=== PATIENT | female | born 1975 | race Two or more races ===

== ENCOUNTER → 2017-01-27 | Outpatient (CLI) | payer OTHER ==
[~2017-01-27] MED LIST: ASPI-496 PO; ASPI-515 PO; CARV12.52 PO; CARV6.252 PO; CEFD300C2 PO; FURO20TA3 PO; HYDR200T PO; LISI5TAB7 PO; LOVA20TA2 PO; MELO-184 PO; MYCO500T3 PO; PANT40TA5 PO; POTA10TA90 PO; PRED10TA PO; PRED5TAB PO; TRAM50TA2 PO
== END | disposition home or self-care (01) ==
LOC: CVU 13:07
PROVIDERS: ATTEND Internal Medicine Cardiovascular Disease
DX: I37.1 Nonrheumatic pulmonary valve insufficiency (principal)
CPT/HCPCS: 93306

== ENCOUNTER → 2017-03-01 | Outpatient (CLI) | payer OTHER ==
[~2017-03-01] MED LIST changes: -CEFD300C2 PO; +CEFD300C37 PO
== END | disposition home or self-care (01) ==
LOC: RAD 16:50
PROVIDERS: ATTEND Internal Medicine Pulmonary Disease
DX: J47.9 Bronchiectasis, uncomplicated (principal)
CPT/HCPCS: 71250

== ENCOUNTER → 2017-03-02 | Outpatient (CLI) | payer OTHER | END | disposition home or self-care (01) | LOC: RAD 15:34 | PROVIDERS: ATTEND Internal Medicine Pulmonary Disease | DX: J47.9 Bronchiectasis, uncomplicated (principal); J84.9 Interstitial pulmonary disease, unspecified; J98.4 Other disorders of lung | CPT/HCPCS: 71250 ==

== ENCOUNTER → 2017-07-10 | Outpatient (CLI) | payer OTHER ==
[~2017-07-10] MED LIST changes: -MELO-184 PO; +MELO15TA24 PO; +POTA10TA6 PO; -POTA10TA90 PO
[2017-07-10 14:48] LABS: ABG COLLECTION SITE LEFT BRACHIAL
== END | disposition home or self-care (01) ==
LOC: CARD 13:06
PROVIDERS: ATTEND Internal Medicine
DX: I27.2 Other secondary pulmonary hypertension (principal)
CPT/HCPCS: 36600; 82803; 94060; 94620; 94726; 94729

== ENCOUNTER → 2017-07-17 | Outpatient (CLI) | payer OTHER | END | disposition home or self-care (01) | LOC: RAD 10:45 | PROVIDERS: ATTEND Internal Medicine | DX: Z01.811 Encounter for preprocedural respiratory examination (principal); J90 Pleural effusion, not elsewhere classified; I27.2 Other secondary pulmonary hypertension | CPT/HCPCS: 71010; 78598; A9540; A9558 ==

== ENCOUNTER → 2017-07-19 | Outpatient (CLI) | payer OTHER ==
[~2017-07-19] MED LIST changes: +OMNIPAQUE 350 MG/ML, 100ML BOTTLE ONE
== END | disposition home or self-care (01) ==
LOC: CFH 08:12
PROVIDERS: ATTEND Internal Medicine
DX: Z13.820 Encounter for screening for osteoporosis (principal); M85.88 Other specified disorders of bone density and structure, other site; I27.2 Other secondary pulmonary hypertension; R91.8 Other nonspecific abnormal finding of lung field; R51 Headache; R59.0 Localized enlarged lymph nodes; J47.9 Bronchiectasis, uncomplicated; J84.112 Idiopathic pulmonary fibrosis; N20.0 Calculus of kidney
CPT/HCPCS: 70450; 71020; 71260; 74177; 77080; Q9967

== ENCOUNTER 2017-09-23 23:06 | Inpatient (IN) | payer OTHER ==
[~2017-09-23] VITALS: Ht 160 cm; Wt 50.2 kg
[~2017-09-23 23:06] MED LIST changes: -OMNIPAQUE 350 MG/ML, 100ML BOTTLE ONE
[2017-09-23] MEDS ORDERED: morphine SULFATE 10 MG/ML, 1ML IVPush PRN (23:30)
[2017-09-23] MEDS ORDERED: ONDANSETRON 2MG/ML, 2ML IVPush ONE (23:30)
[2017-09-23] MEDS ORDERED: SODIUM CHLORIDE FLUSH 10ML SYR IVF ONE (23:30)
[2017-09-23] MEDS ORDERED: ACETAMINOPHEN 325 MG TABLET PO ONE (23:30)
[2017-09-23] MEDS ORDERED: SODIUM CHLORIDE 0.9% 1,000ML IVBOLUS ONE (23:30)
[2017-09-23] MEDS ORDERED: ACETAMINOPHEN 325 MG TABLET ONE (23:50)
[2017-09-23] MEDS ORDERED: morphine SULFATE 10 MG/ML, 1ML ONE (23:51)
[2017-09-23] MEDS ORDERED: ONDANSETRON 2MG/ML, 2ML ONE (23:51)
[2017-09-23 23:54] LABS: RAPID INFLUENZA A Negative (Negative); RAPID INFLUENZA B Negative (Negative)
[2017-09-24 00:16] LABS: HEMATOCRIT 43.2 % (34.6-47.8); HEMOGLOBIN 14.2 g/dL (11.7-16.4); WHITE BLOOD COUNT 13.6 x10^3/uL (3.4-10)
[2017-09-24] MEDS ORDERED: NINT150C PO (00:16)
[2017-09-24] MEDS ORDERED: MELO15TA24 PO (00:16)
[2017-09-24] MEDS ORDERED: FLUT9.9S INH (00:16)
[2017-09-24] MEDS ORDERED: SODIUM CHLORIDE 0.9% 1,000 ML IV SCH (00:20)
[2017-09-24 00:23] LABS: ASPARTATE AMINO TRANSFERASE 19 U/L (15-37); BLOOD UREA NITROGEN 13 mg/dL (7-18)
[2017-09-24 00:30] LABS: IS PT STATUS REG ER OR PRE ER? YES
[2017-09-24] MEDS ORDERED: morphine SULFATE 10 MG/ML, 1ML IVPush PRN (00:30)
[2017-09-24] MEDS ORDERED: GUAIFENESIN/DM 200-20MG, 10ML UDC PO PRN (00:30)
[2017-09-24] MEDS ORDERED: TEMAZEPAM 15 MG CAPSULE PO PRN (00:30)
[2017-09-24] MEDS ORDERED: DOCUSATE 100 MG CAPSULE PO PRN (00:30)
[2017-09-24 01:18] VITALS: BP 120/80
[2017-09-24] MEDS: CEFTRIAXONE PMX 1GM/50ML 50 ML IV SCH ×2 (02:05→13:21)
[2017-09-24] MEDS: ENOXAPARIN 40 MG/0.4 ML SQ SCH (02:05)
[2017-09-24] MEDS: methylPREDNISolone SOD SUCC 40 MG/ML IV SCH ×3 (02:05→16:24)
[2017-09-24] MEDS ORDERED: ALBUTEROL SULFATE 2.5 MG/3 ML NPPB PRN (02:30)
[2017-09-24] MEDS: AZITHROMYCIN 500 MG in SODIUM CHLORIDE 0.9% 250 ML IV SCH (02:47)
[2017-09-24 06:40] VITALS: BP 91/60
[2017-09-24] MEDS: [UNRECOGNIZED DRUG - OTHER] HOMEMEDPO SCH (09:00)
[2017-09-24] MEDS: LISINOPRIL 5 MG TABLET PO SCH (09:00)
[2017-09-24] MEDS: CARVEDILOL 12.5 MG TABLET PO SCH ×2 (09:00→21:06)
[2017-09-24] MEDS: ASPIRIN 81 MG TABLET EC PO SCH (09:00)
[2017-09-24] MEDS: HYDROXYCHLOROQUINE 200 MG TABLET PO SCH ×2 (09:19→21:06)
[2017-09-24] MEDS ORDERED: FUROSEMIDE 40 MG/4 ML IV ONE (11:00)
[2017-09-24 12:36] VITALS: BP 107/72
[2017-09-24 14:36] VITALS: BP 131/91
[2017-09-24] MEDS: ONDANSETRON 2MG/ML, 2ML IVPush PRN (15:27)
[2017-09-24] MEDS: ACETAMINOPHEN 325 MG TABLET PO PRN ×2 (16:33→21:06)
[2017-09-24] MEDS ORDERED: PROMETHAZINE 25 MG/ML, 1ML IM PRN (18:00)
[2017-09-24 20:30] VITALS: BP 131/84
[2017-09-25] MEDS: methylPREDNISolone SOD SUCC 40 MG/ML IV SCH ×3 (01:16→17:07)
[2017-09-25] MEDS: ENOXAPARIN 40 MG/0.4 ML SQ SCH (01:18)
[2017-09-25] MEDS: CEFTRIAXONE PMX 1GM/50ML 50 ML IV SCH ×2 (01:34→13:19)
[2017-09-25] MEDS: AZITHROMYCIN 500 MG in SODIUM CHLORIDE 0.9% 250 ML IV SCH (02:04)
[2017-09-25 02:05] VITALS: BP 91/60
[2017-09-25 05:32] LABS: HEMATOCRIT 35.7 % (34.6-47.8); HEMOGLOBIN 11.6 g/dL (11.7-16.4); WHITE BLOOD COUNT 6.5 x10^3/uL (3.4-10)
[2017-09-25 05:34] LABS: BLOOD UREA NITROGEN 20 mg/dL (7-18)
[2017-09-25 08:00] VITALS: BP 99/66
[2017-09-25] MEDS: ASPIRIN 81 MG TABLET EC PO SCH (08:29)
[2017-09-25] MEDS: LISINOPRIL 5 MG TABLET PO SCH (08:29)
[2017-09-25] MEDS: CARVEDILOL 12.5 MG TABLET PO SCH ×2 (08:29→20:12)
[2017-09-25] MEDS: [UNRECOGNIZED DRUG - OTHER] HOMEMEDPO SCH (08:30)
[2017-09-25] MEDS: HYDROXYCHLOROQUINE 200 MG TABLET PO SCH ×2 (08:30→20:12)
[2017-09-25] MEDS: ONDANSETRON 2MG/ML, 2ML IVPush PRN ×2 (13:19→20:19)
[2017-09-25 13:58] VITALS: BP 121/82
[2017-09-25 20:37] VITALS: BP 144/96
[2017-09-26] MEDS: CEFTRIAXONE PMX 1GM/50ML 50 ML IV SCH ×2 (01:01→12:37)
[2017-09-26] MEDS: ENOXAPARIN 40 MG/0.4 ML SQ SCH (01:01)
[2017-09-26] MEDS: methylPREDNISolone SOD SUCC 40 MG/ML IV SCH ×3 (01:01→17:15)
[2017-09-26 01:29] VITALS: BP 136/90
[2017-09-26] MEDS: AZITHROMYCIN 500 MG in SODIUM CHLORIDE 0.9% 250 ML IV SCH (02:17)
[2017-09-26] MEDS: ONDANSETRON 2MG/ML, 2ML IVPush PRN ×2 (02:36→08:58)
[2017-09-26 05:15] LABS: HEMOGLOBIN 12.2 g/dL (11.7-16.4); WHITE BLOOD COUNT 7.2 x10^3/uL (3.4-10)
[2017-09-26 05:24] LABS: BLOOD UREA NITROGEN 24 mg/dL (7-18)
[2017-09-26 07:40] VITALS: BP 141/90
[2017-09-26 07:50] LABS: ABG COLLECTION SITE RIGHT RADIAL; COLLATERAL CIRCULATION TESTING NORMAL
[2017-09-26] MEDS: LISINOPRIL 5 MG TABLET PO SCH (08:38)
[2017-09-26] MEDS: CARVEDILOL 12.5 MG TABLET PO SCH ×2 (08:38→20:42)
[2017-09-26] MEDS: HYDROXYCHLOROQUINE 200 MG TABLET PO SCH ×2 (08:38→20:42)
[2017-09-26] MEDS: [UNRECOGNIZED DRUG - OTHER] HOMEMEDPO SCH (08:39)
[2017-09-26] MEDS: ASPIRIN 81 MG TABLET EC PO SCH (08:41)
[2017-09-26] MEDS: ALBUTEROL SULFATE 2.5 MG/3 ML NPPB SCH ×4 (09:47→19:31)
[2017-09-26] MEDS: SODIUM CHLORIDE 0.9% 1,000 ML IV SCH ×2 (11:22→23:32)
[2017-09-26 12:34] LABS: BLOOD UREA NITROGEN 23 mg/dL (7-18)
[2017-09-26] MEDS: ACETAMINOPHEN 325 MG TABLET PO PRN (17:46)
[2017-09-27] MEDS: methylPREDNISolone SOD SUCC 40 MG/ML IV SCH ×3 (00:34→17:14)
[2017-09-27] MEDS: ENOXAPARIN 40 MG/0.4 ML SQ SCH (00:35)
[2017-09-27] MEDS: CEFTRIAXONE PMX 1GM/50ML 50 ML IV SCH ×2 (01:38→13:48)
[2017-09-27] MEDS: AZITHROMYCIN 500 MG in SODIUM CHLORIDE 0.9% 250 ML IV SCH (02:04)
[2017-09-27 04:31] LABS: ABG COLLECTION SITE RIGHT RADIAL; COLLATERAL CIRCULATION TESTING NORMAL
[2017-09-27 04:36] LABS: HEMATOCRIT 34.7 % (34.6-47.8); HEMOGLOBIN 11.3 g/dL (11.7-16.4); WHITE BLOOD COUNT 4.9 x10^3/uL (3.4-10)
[2017-09-27 04:41] LABS: BLOOD UREA NITROGEN 16 mg/dL (7-18)
[2017-09-27 06:10] VITALS: BP 130/88
[2017-09-27] MEDS: ALBUTEROL SULFATE 2.5 MG/3 ML NPPB SCH ×4 (07:00→19:49)
[2017-09-27] MEDS: CARVEDILOL 12.5 MG TABLET PO SCH ×2 (08:18→21:42)
[2017-09-27] MEDS: HYDROXYCHLOROQUINE 200 MG TABLET PO SCH ×2 (08:19→21:42)
[2017-09-27] MEDS: LISINOPRIL 5 MG TABLET PO SCH (08:19)
[2017-09-27] MEDS: ASPIRIN 81 MG TABLET EC PO SCH ×2 (08:19→08:24)
[2017-09-27] MEDS: [UNRECOGNIZED DRUG - OTHER] HOMEMEDPO SCH (08:23)
[2017-09-27] MEDS: SODIUM CHLORIDE 0.9% 1,000 ML IV SCH (13:48)
[2017-09-27] MEDS: ACETAMINOPHEN 325 MG TABLET PO PRN (19:36)
[2017-09-28] VITALS (7 sets, daily range): BP systolic 140–178; BP diastolic 88–110
[2017-09-28] MEDS: methylPREDNISolone SOD SUCC 40 MG/ML IV SCH ×3 (00:12→18:10)
[2017-09-28] MEDS: ENOXAPARIN 40 MG/0.4 ML SQ SCH (00:12)
[2017-09-28] MEDS: CEFTRIAXONE PMX 1GM/50ML 50 ML IV SCH ×2 (01:02→15:53)
[2017-09-28] MEDS: SODIUM CHLORIDE 0.9% 1,000 ML IV SCH ×2 (02:11→20:24)
[2017-09-28] MEDS: AZITHROMYCIN 500 MG in SODIUM CHLORIDE 0.9% 250 ML IV SCH (02:11)
[2017-09-28] MEDS: ONDANSETRON 2MG/ML, 2ML IVPush PRN (03:17)
[2017-09-28 04:36] LABS: ABG COLLECTION SITE RIGHT RADIAL; COLLATERAL CIRCULATION TESTING NORMAL
[2017-09-28 04:49] LABS: BLOOD UREA NITROGEN 13 mg/dL (7-18)
[2017-09-28] MEDS ORDERED: ALBUTEROL SULFATE 2.5 MG/3 ML NPPB PRN (07:00)
[2017-09-28] MEDS ORDERED: AcetaZOLAMIDE INJ 500 MG IVPush SCH (08:30)
[2017-09-28] MEDS: LISINOPRIL 5 MG TABLET PO SCH (08:41)
[2017-09-28] MEDS: ASPIRIN 81 MG TABLET EC PO SCH (08:41)
[2017-09-28] MEDS: HYDROXYCHLOROQUINE 200 MG TABLET PO SCH ×2 (08:42→20:25)
[2017-09-28] MEDS: [UNRECOGNIZED DRUG - OTHER] HOMEMEDPO SCH (08:42)
[2017-09-28] MEDS: CARVEDILOL 12.5 MG TABLET PO SCH ×2 (08:42→20:25)
[2017-09-28] MEDS: ENALAPRILAT 1.25 MG/ML, 2ML IVPush PRN ×2 (12:06→23:21)
[2017-09-29] VITALS (10 sets, daily range): BP systolic 117–185; BP diastolic 64–111
[2017-09-29] MEDS: ENOXAPARIN 40 MG/0.4 ML SQ SCH (01:47)
[2017-09-29] MEDS: methylPREDNISolone SOD SUCC 40 MG/ML IV SCH ×3 (01:47→16:59)
[2017-09-29] MEDS: AZITHROMYCIN 500 MG in SODIUM CHLORIDE 0.9% 250 ML IV SCH (01:47)
[2017-09-29] MEDS: CEFTRIAXONE PMX 1GM/50ML 50 ML IV SCH ×2 (03:25→16:54)
[2017-09-29 06:00] LABS: BLOOD UREA NITROGEN 11 mg/dL (7-18)
[2017-09-29] MEDS: ENALAPRILAT 1.25 MG/ML, 2ML IVPush PRN ×2 (08:27→10:12)
[2017-09-29] MEDS: [UNRECOGNIZED DRUG - OTHER] HOMEMEDPO SCH (08:30)
[2017-09-29] MEDS: ASPIRIN 81 MG TABLET EC PO SCH (08:30)
[2017-09-29] MEDS: HYDROXYCHLOROQUINE 200 MG TABLET PO SCH ×2 (08:30→20:29)
[2017-09-29] MEDS: CARVEDILOL 12.5 MG TABLET PO SCH ×2 (08:31→20:29)
[2017-09-29] MEDS: LISINOPRIL 5 MG TABLET PO SCH (08:31)
[2017-09-29] MEDS: SODIUM CHLORIDE 0.9% 1,000 ML IV SCH (12:10)
[2017-09-29] MEDS ORDERED: AcetaZOLAMIDE INJ 500 MG IVPush ONE (16:30)
[2017-09-29] MEDS: LISINOPRIL 10 MG TABLET PO SCH (16:54)
[2017-09-29] MEDS: AMLODIPINE 5 MG TABLET PO SCH (16:54)
[2017-09-30] VITALS (7 sets, daily range): BP systolic 145–165; BP diastolic 91–106
[2017-09-30] MEDS: ENOXAPARIN 40 MG/0.4 ML SQ SCH (00:13)
[2017-09-30] MEDS: methylPREDNISolone SOD SUCC 40 MG/ML IV SCH ×3 (00:13→16:25)
[2017-09-30] MEDS: AZITHROMYCIN 500 MG in SODIUM CHLORIDE 0.9% 250 ML IV SCH (02:04)
[2017-09-30] MEDS: CEFTRIAXONE PMX 1GM/50ML 50 ML IV SCH ×2 (03:17→14:59)
[2017-09-30 06:19] LABS: BLOOD UREA NITROGEN 10 mg/dL (7-18)
[2017-09-30] MEDS: [UNRECOGNIZED DRUG - OTHER] HOMEMEDPO SCH (09:24)
[2017-09-30] MEDS: AMLODIPINE 5 MG TABLET PO SCH (09:25)
[2017-09-30] MEDS: ASPIRIN 81 MG TABLET EC PO SCH (09:25)
[2017-09-30] MEDS: LISINOPRIL 10 MG TABLET PO SCH (09:25)
[2017-09-30] MEDS: HYDROXYCHLOROQUINE 200 MG TABLET PO SCH ×2 (09:25→21:41)
[2017-09-30] MEDS: CARVEDILOL 12.5 MG TABLET PO SCH ×2 (09:26→21:41)
[2017-09-30] MEDS ORDERED: AcetaZOLAMIDE INJ 500 MG IVPush ONE (12:00)
[2017-09-30] MEDS: NYSTATIN 500,000 UNITS/5 ML UDC PO SCH (21:40)
[2017-10-01] MEDS: methylPREDNISolone SOD SUCC 40 MG/ML IV SCH ×3 (00:26→16:18)
[2017-10-01] MEDS: ENOXAPARIN 40 MG/0.4 ML SQ SCH (00:26)
[2017-10-01] MEDS: AZITHROMYCIN 500 MG in SODIUM CHLORIDE 0.9% 250 ML IV SCH (02:01)
[2017-10-01 02:07] VITALS: BP 128/88
[2017-10-01] MEDS: CEFTRIAXONE PMX 1GM/50ML 50 ML IV SCH ×2 (03:43→16:18)
[2017-10-01 05:19] LABS: BLOOD UREA NITROGEN 11 mg/dL (7-18)
[2017-10-01] MEDS: NYSTATIN 500,000 UNITS/5 ML UDC PO SCH ×4 (06:15→19:56)
[2017-10-01 06:50] VITALS: BP 158/89
[2017-10-01] MEDS: [UNRECOGNIZED DRUG - OTHER] HOMEMEDPO SCH (09:00)
[2017-10-01] MEDS: ASPIRIN 81 MG TABLET EC PO SCH (09:00)
[2017-10-01] MEDS: LISINOPRIL 10 MG TABLET PO SCH (09:49)
[2017-10-01] MEDS: AMLODIPINE 5 MG TABLET PO SCH (09:49)
[2017-10-01] MEDS: HYDROXYCHLOROQUINE 200 MG TABLET PO SCH ×2 (09:49→19:56)
[2017-10-01] MEDS: CARVEDILOL 12.5 MG TABLET PO SCH ×2 (09:49→19:56)
[2017-10-01 14:36] VITALS: BP 130/80
[2017-10-01 19:23] VITALS: BP 166/101
[2017-10-02] MEDS: ENOXAPARIN 40 MG/0.4 ML SQ SCH (00:53)
[2017-10-02] MEDS: methylPREDNISolone SOD SUCC 40 MG/ML IV SCH ×2 (00:53→09:02)
[2017-10-02] MEDS: AZITHROMYCIN 500 MG in SODIUM CHLORIDE 0.9% 250 ML IV SCH (02:32)
[2017-10-02 02:57] VITALS: BP 158/96
[2017-10-02] MEDS: CEFTRIAXONE PMX 1GM/50ML 50 ML IV SCH ×2 (03:56→15:30)
[2017-10-02] MEDS: NYSTATIN 500,000 UNITS/5 ML UDC PO SCH ×2 (05:58→11:00)
[2017-10-02 08:11] VITALS: BP 166/99
[2017-10-02] MEDS: ASPIRIN 81 MG TABLET EC PO SCH (09:00)
[2017-10-02] MEDS: [UNRECOGNIZED DRUG - OTHER] HOMEMEDPO SCH (09:00)
[2017-10-02] MEDS: HYDROXYCHLOROQUINE 200 MG TABLET PO SCH (09:02)
[2017-10-02] MEDS: LISINOPRIL 10 MG TABLET PO SCH (09:03)
[2017-10-02] MEDS: AMLODIPINE 5 MG TABLET PO SCH (09:03)
[2017-10-02] MEDS: CARVEDILOL 12.5 MG TABLET PO SCH (09:03)
[2017-10-02 14:00] VITALS: BP 162/96
[2017-10-02] MEDS ORDERED: NYST1000 PO (14:33)
[2017-10-02] MEDS ORDERED: AMLO5TAB2 PO (14:33)
[2017-10-02] MEDS ORDERED: LISI-170 PO (14:33)
[2017-10-02] MEDS ORDERED: PRED5TAB PO (14:33)
[2017-10-02] MEDS ORDERED: DOCU-131 PO (14:33)
[2017-10-02] MEDS ORDERED: AZIT500T PO (14:41)
[2017-10-02] MEDS ORDERED: CEFD300C37 PO (14:41)
[2017-10-02] MEDS ORDERED: FURO-93 PO (14:45)
[2017-10-03] MEDS ORDERED: LISINOPRIL 20 MG TABLET PO SCH (09:00)
== END 2017-10-02 16:39 | disposition home or self-care (01) | DRG 871 ==
LOC: ED 23:59 → EDIP 09-24 01:18 → 4WST 09-24 01:19 → CCU 09-26 09:24 → 3NE 09-28 13:34 → DCLOUNGE 10-02 16:20
PROVIDERS: ADMIT Family Medicine; ATTEND Family Medicine
DX: A41.9 Sepsis, unspecified organism (principal); E43 Unspecified severe protein-calorie malnutrition; J96.21 Acute and chronic respiratory failure with hypoxia; D84.9 Immunodeficiency, unspecified; K52.1 Toxic gastroenteritis and colitis; B37.0 Candidal stomatitis; J15.9 Unspecified bacterial pneumonia; J96.22 Acute and chronic respiratory failure with hypercapnia; I50.30 Unspecified diastolic (congestive) heart failure; Z68.1 Body mass index [BMI] 19.9 or less, adult; J47.0 Bronchiectasis with acute lower respiratory infection; I11.0 Hypertensive heart disease with heart failure; I27.20 Pulmonary hypertension, unspecified; E78.5 Hyperlipidemia, unspecified; I07.1 Rheumatic tricuspid insufficiency; I25.10 Atherosclerotic heart disease of native coronary artery without angina pectoris; J00 Acute nasopharyngitis [common cold]; J84.10 Pulmonary fibrosis, unspecified; M06.9 Rheumatoid arthritis, unspecified; Z99.81 Dependence on supplemental oxygen
CPT/HCPCS: 36415; 36600; 71010; 80048; 80053; 82803; 83605; 83735; 83880; 84145; 84484; 85025; 87040; 87081; 87400; 88108; 88112; 93005; 93306; 94640; 96361; 96374; 96375; J0456; J0696; J1650; J1940; J2405; J7613; J1120; J2270; J2920; J7030; J7050; J7517

== ENCOUNTER 2017-10-30 12:01 | Day surgery (SDC) | payer OTHER ==
[2017-10-27 11:23] VITALS: BP 107/72
[2017-10-27 11:56] LABS: BASOPHILS # (AUTO) 0.02 x10^3/uL (0-0.1); BASOPHILS % (AUTO) 0 % (0-1); EOSINOPHILS # (AUTO) 0.11 x10^3/uL (0-0.4); EOSINOPHILS % (AUTO) 3 % (1-7); LYMPHOCYTES # (AUTO) 1.22 x10^3/uL (1-3.4); LYMPHOCYTES % (AUTO) 28 % (22-44); MD NO; MEAN CORPUSCULAR HEMOGLOBIN 30.5 pg (27.0-34.8); MEAN CORPUSCULAR VOLUME 92.5 fL (80-100); MEAN PLATELET VOLUME 8.2 fL (7.4-10.4); MONOCYTES # (AUTO) 0.58 x10^3/uL (0.2-0.8); MONOCYTES % (AUTO) 13 % (2-9); NEUTROPHILS # (AUTO) 2.39 x10^3/uL (1.8-6.8); NEUTROPHILS % (AUTO) 56 % (42-75); PLATELET COUNT 268 x10^3/uL (130-400); RED BLOOD COUNT 4.29 x10^6/uL (3.82-5.3); RED CELL DISTRIBUTION WIDTH 16.9 % (9.6-15.2)
[2017-10-27 12:06] LABS: ANION GAP 4 mmol/L (5-15); CALCIUM 8.9 mg/dL (8.5-10.1); CHLORIDE 100 mmol/L (98-107)
[2017-10-27 12:08] LABS: CREATININE 0.31 mg/dL (0.55-1.02)
[2017-10-27 12:12] LABS: INTERNATIONAL NORMALIZED RATIO 0.89 (0.93-1.1); PROTHROMBIN TIME 9.3 Seconds (9.6-11.5)
[~2017-10-30] VITALS: Ht 160 cm; Wt 49.1 kg
[~2017-10-30 12:01] MED LIST changes: +AMLO5TAB2 PO; +AZIT500T PO; +DOCU-131 PO; +FLUT9.9S INH; +FURO-93 PO; +LISI-170 PO; +NINT150C PO; +NYST1000 PO
[2017-10-30] MEDS ORDERED: DIPHENHYDRAMINE 50 MG/ML, 1ML ONE (12:59)
[2017-10-30] MEDS: DIPHENHYDRAMINE 50 MG/ML, 1ML IVPush ONE ×2 (13:00→15:24)
[2017-10-30] MEDS ORDERED: MIDAZOLAM 1 MG/ML, 2ML ONE (15:29)
[2017-10-30] MEDS ORDERED: FENTANYL PF 100 MCG/2ML ONE (15:29)
[2017-10-30] MEDS ORDERED: LIDOCAINE 2%, 20ML ONE (15:29)
[2017-10-30] MEDS ORDERED: VERAPAMIL 2.5 MG/ML, 2ML ONE (15:33)
[2017-10-30] MEDS ORDERED: HEPARIN 1,000 UNITS/ML, 10ML ONE (16:08)
[2017-10-30] MEDS ORDERED: SODIUM CHLORIDE 0.9% 1,000 ML IV SCH (16:41)
[2017-10-30 20:46] VITALS: BP 99/65
== END 2017-10-30 22:51 | disposition home or self-care (01) ==
LOC: CACL 12:01 → 5SO 17:10 → CACL 22:51
PROVIDERS: ATTEND Internal Medicine Cardiovascular Disease
DX: J84.112 Idiopathic pulmonary fibrosis (principal); I27.20 Pulmonary hypertension, unspecified; I10 Essential (primary) hypertension
CPT/HCPCS: 36415; 80048; 85025; 85610; 85730; 93460; 99156; 99157; C1769; C1894; J1200; J1644; J2250; J3010; J3490; Q9967

== ENCOUNTER 2017-12-19 11:09 | Emergency (ER) | payer OTHER ==
[~2017-12-19] VITALS: Ht 160 cm; Wt 50.0 kg
[2017-12-19] MEDS ORDERED: NINT100C PO (11:19)
[2017-12-19] MEDS ORDERED: CARV6.252 PO (11:19)
[2017-12-19] MEDS ORDERED: MELO15TA24 PO (11:19)
[2017-12-19] MEDS ORDERED: methylPREDNISolone SOD SUCC 125 MG/2 ML IVP ONE (11:30)
[2017-12-19] MEDS ORDERED: ALBUTEROL/IPRATROPIUM 2.5MG/0.5MG, 3 ML NPPB ONE (11:30)
[2017-12-19] MEDS ORDERED: SODIUM CHLORIDE FLUSH 10ML SYR IVF ONE (11:30)
[2017-12-19 11:48] LABS: BASOPHILS # (AUTO) 0.03 x10^3/uL (0-0.1); BASOPHILS % (AUTO) 0 % (0-1); EOSINOPHILS # (AUTO) 0.36 x10^3/uL (0-0.4); EOSINOPHILS % (AUTO) 5 % (1-7); LYMPHOCYTES # (AUTO) 0.99 x10^3/uL (1-3.4); LYMPHOCYTES % (AUTO) 14 % (22-44); MD NO; MEAN CORPUSCULAR HEMOGLOBIN 30.8 pg (27.0-34.8); MEAN CORPUSCULAR HGB CONC 32.9 g/dL (32.4-35.8); MEAN CORPUSCULAR VOLUME 93.6 fL (80-100); MONOCYTES # (AUTO) 0.47 x10^3/uL (0.2-0.8); MONOCYTES % (AUTO) 7 % (2-9); NEUTROPHILS # (AUTO) 5.15 x10^3/uL (1.8-6.8); NEUTROPHILS % (AUTO) 74 % (42-75); PLATELET COUNT 167 x10^3/uL (130-400); RED BLOOD COUNT 4.09 x10^6/uL (3.82-5.3); RED CELL DISTRIBUTION WIDTH 13.8 % (9.6-15.2)
[2017-12-19] MEDS ORDERED: ALBUTEROL/IPRATROPIUM 2.5MG/0.5MG, 3 ML ONE (11:54)
[2017-12-19 11:56] LABS: ALANINE AMINOTRANSFERASE 15 U/L (12-78); ALBUMIN 2.8 g/dL (3.4-5.0); ANION GAP 4 mmol/L (5-15); CALCIUM 8.6 mg/dL (8.5-10.1); CHLORIDE 101 mmol/L (98-107); CREATININE 0.31 mg/dL (0.55-1.02)
[2017-12-19 12:01] LABS: ALKALINE PHOSPHATASE 64 U/L (45-117); BILIRUBIN,TOTAL 0.3 mg/dL (0.2-1.0); TOTAL PROTEIN 6.9 g/dL (6.4-8.2); TROPONIN I 0.039 ng/mL (0.000-0.045)
[2017-12-19 12:22] VITALS: BP 141/90
== END 2017-12-19 12:56 | disposition home or self-care (01) ==
LOC: ED 11:20
DX: R06.00 Dyspnea, unspecified (principal); J84.10 Pulmonary fibrosis, unspecified; M06.9 Rheumatoid arthritis, unspecified; I27.20 Pulmonary hypertension, unspecified
CPT/HCPCS: 36415; 71045; 80053; 83880; 84484; 85025; 93005; 94640; 99285; J7512; J7620

== ENCOUNTER → 2018-01-17 | Outpatient (CLI) | payer OTHER ==
[~2018-01-17] MED LIST changes: -HYDR200T PO; +HYDR200T72 PO; +NINT100C PO
== END | disposition home or self-care (01) ==
LOC: CFH 13:57
PROVIDERS: ATTEND Nurse Practitioner
DX: J84.9 Interstitial pulmonary disease, unspecified (principal)
CPT/HCPCS: G0237